=== PATIENT | female | born 1975 | race African-American/Black ===

== ENCOUNTER 2022-11-17 13:31 | Emergency (ER) | payer OTHER ==
[2022-11-17 13:51] VITALS: TEMP 98.2; BMI 31.5
[2022-11-17 14:58] LABS: BASO % 1.7 % (0-2.0); EOS % 3.2 % (0-4.5); HEMATOCRIT 25.5 % (32.4-45.2); HEMOGLOBIN 8.3 GM/dL (10.7-15.3); MCHC 32.4 g/dl (32.0-36.0); MEAN CELL VOLUME 60.9 fl (80-96); MEAN PLT VOLUME 8.4 fl (7.5-11.1); MONO % 6.5 % (3.8-10.2); NEUT % 57.6 % (42.8-82.8); PLATELET COUNT 452 10^3/uL (134-434); RBC 4.19 M/mm3 (3.60-5.2); RDW 20.2 % (11.6-15.6); WHITE BLOOD COUNT 9.2 K/mm3 (4.0-10.0)
[2022-11-17 14:59] LABS: MCH 19.7 pg (25.7-33.7)
[2022-11-17 15:05] LABS: INR 1.06 (0.83-1.09); PROTHROMBIN TIME (PATIENT) 12.3 SEC (9.7-13.0)
[2022-11-17 15:08] LABS: ACTIVATED PTT 29.7 SECONDS (25.2-36.5)
[2022-11-17 15:25] LABS: BLOOD UREA NITROGEN 9.6 mg/dL (7-18)
[2022-11-17 15:27] LABS: ALBUMIN 3.3 g/dl (3.4-5.0)
[2022-11-17 15:29] LABS: CREATININE 0.9 mg/dL (0.55-1.3)
[2022-11-17 15:30] LABS: BILIRUBIN,TOTAL 0.4 mg/dL (0.2-1)
[2022-11-17 15:31] LABS: ANISOCYTOSIS 3+; MACROCYTOSIS 0; OVALOCYTE 1+; TOT PROT 7.3 g/dl (6.4-8.2)
[2022-11-17 17:04] LABS: BASO % 1.2 % (0-2.0); EOS % 2.8 % (0-4.5); HEMATOCRIT 26.3 % (32.4-45.2); HEMOGLOBIN 8.3 GM/dL (10.7-15.3); LYMPH % 29.3 % (8-40); MCHC 31.5 g/dl (32.0-36.0); MEAN CELL VOLUME 61.4 fl (80-96); MEAN PLT VOLUME 8.8 fl (7.5-11.1); MONO % 7.3 % (3.8-10.2); NEUT % 59.4 % (42.8-82.8); PLATELET COUNT 447 10^3/uL (134-434); RBC 4.27 M/mm3 (3.60-5.2); RDW 19.7 % (11.6-15.6); WHITE BLOOD COUNT 9.1 K/mm3 (4.0-10.0)
[2022-11-17 17:11] LABS: MCH 19.4 pg (25.7-33.7)
[2022-11-17 17:21] VITALS: BP 132/87; PULSE 101; RESP 15
== END 2022-11-17 18:02 | disposition home or self-care (01) ==
LOC: JER 13:31
DX: R07.89 Other chest pain (principal)
CPT/HCPCS: 0241U-QW; 36415; 71045-TC-FY; 80053; 84439; 84443; 84484; 85025; 85610; 85730; 86850; 86900; 86901; 93005; 93010; 99285-25